=== PATIENT | male | born 1975 | race Caucasian/White ===

== ENCOUNTER 2018-07-05 05:05 | Inpatient (IN) ==
--- NOTE | 2018-06-23 14:29 | Anesthesiology Consultation ---
Date of Service June 23, 2018 Assessment & Plan (1) Encounter for pre-operative examination: Chart Review Chart Review: Acceptable Risk for Surgery and Patient seen in Pre Admission Testing Teaching & Discussion Instructed NPO after midnight before surgery, except medications with 15 cc of water. Medication instructions provided according to the PAT guidelines. History Surgery Operation Date: 07/05/18 07:30 Proposed Procedures p Robotic Laparoscopic Assisted Radical Retropubic Prostatectomy, Possible Open , Possible Lymph Node Dissection - Karosn Davey MD Height/Weight Height: 5 ft 7 in Weight: 70 kg Allergies Allergy/AdvReac Type Severity Reaction Status Date / Time No Known Allergies Allergy Verified 06/22/18 13:54 Medications Home Medications Medication Instructions Recorded Confirmed Last Taken L-Arginine 500 mg PO DAILY 06/22/18 06/22/18 Unknown Super Food/Raw Dietary 1 dose PO UD 06/22/18 06/22/18 Unknown Turmeric 1,500 mg PO DAILY 06/22/18 06/22/18 Unknown ginkgo biloba leaf extract 120 mg PO DAILY 06/22/18 06/22/18 Unknown vitamin B complex 1 tab PO DAILY 06/22/18 06/22/18 Unknown Past Medical History Medical History Cancer PROSTATE CANCER (NEW DX) Migraine HX OF Past Family History Family History Grandmother (Paternal) Family hx of colon cancer Past Surgical History Surgical History H/O eye surgery LASER ON RT (RETINA REPAIR) H/O prostate biopsy ELEVATED PSA LEVELS History of myringotomy BMT History of tooth extraction Past Anesthesia History No Hx of Anesthesia Complications and No Family Hx of Anesthesia Complications History of PONV No Motion Sickness Screening History of Motion Sickness: No Social History Smoking Status: Never smoker tobacco type: smokeless tobacco Do You Dip or Chew Tobacco: Yes (3-4 CANS WEEKLY, ADVISED NONE AM DOS) Hx Alcohol Use: Yes Alcohol type: beer alcohol intake frequency: a few times a month Hx Substance Use: No substance use type: does not use Exercise / Class Metabolic Activity II 4-5 Yardwork/Stairs/Walk up hill (Cuts and splits wood, has a physical job, no limiting CP or SOB) Review of Systems Pt denies any recent chest pain, shortness of breath, palpitations, cough, fever or URI. Physical Exam Vital Signs BP: 134/86 P: 68bpm SPO2: 97% RA T: 98.6 F R: 16 ENMT Mouth: + dentition abnormality (Missing a few molars); no dental restorations, no chipped teeth and no loose teeth Thyromental Distance: < 3.5 Finger Breadths (3) Mallampati Class: I Neck normal visual inspection and + facial hair (short trimmed, pt OK to shave p/t surgery); neck extension not limited Respiratory normal respiratory effort Auscultation: lungs clear to auscultation bilaterally Cardiovascular Rate/Rhythm: regular rate and regular rhythm Heart Sounds: no murmur Vessels: no carotid bruit Testing Electrocardiogram Date: 06/23/18 Findings: + NSR @ (65) Rightward axis. Chest X-Ray Date: 06/23/18 Findings: + NAD Laboratory Results 06/23/18 14:45 06/23/18 14:45 Blood Type O Positive 06/23/18 14:45 Antibody Screen NEGATIVE 06/23/18 14:45
--- NOTE | 2018-06-23 14:36 | PAT Medication Instructions ---
Medication Instructions Date of Service June 23, 2018 Home Medications L-Arginine 500 mg PO DAILY Super Food/Raw Dietary 1 dose PO UD Turmeric 1,500 mg PO DAILY ginkgo biloba leaf extract 120 mg PO DAILY vitamin B complex 1 tab PO DAILY STOP taking 2 weeks before surgery L-Arginine 500 mg PO DAILY Super Food/Raw Dietary 1 dose PO UD Turmeric 1,500 mg PO DAILY ginkgo biloba leaf extract 120 mg PO DAILY DO NOT take the morning of surgery vitamin B complex 1 tab PO DAILY Other Notes If you have any questions please call us at [phone] or [phone] or [phone] or [phone]
--- NOTE | 2018-06-23 15:02 | XRay Report ---
XR chest Pre-admission PA/Lat CLINICAL HISTORY: pat preoperative evaluation COMPARISON STUDY: No previous studies for comparison. FINDINGS: The bones soft tissues and hemidiaphragms are normal. The cardiomediastinal silhouette is n ormal. The lungs are clear. The pulmonary vasculature is normal. IMPRESSION: Negative chest. The above report was generated using voice recognition software. It may contain grammatical, syntax or spelling errors. Electronically signed by: Eric Zayas M.D. 06/23/2018 3:01 PM
[2018-06-23 15:15] LABS: Basophils # (auto) 0.03 K/uL (0-0.2); Basophils % (auto) 0.6 %; Eosinophils # (auto) 0.12 K/uL (0-0.5); Eosinophils % (auto) 2.2 %; Hematocrit (blood only) 44.1 % (42-52); Lymphocytes # (auto) 1.76 K/uL (1.2-3.4); Lymphocytes % (auto) 32.7 %; Mean Corpuscular Hgb Conc 36.3 g/dL (32-36); Mean Corpuscular Volume 85.1 fL (80-100); Mean Platelet Volume 10.9 fL (7.4-10.4); Monocytes # (auto) 0.27 K/uL (0.11-0.59); Neutrophils % (auto) 59.5 %; Platelet Count 222 K/uL (130-400); RDW Coefficient of Variation 12.9 % (11.5-14.5); RDW Standard Deviation 40.2 fL (36.4-46.3); Red Blood Count 5.18 M/uL (4.7-6.1); White Blood Count 5.38 K/uL (4.8-10.8)
[2018-06-23 15:42] LABS: BUN Creatinine Ratio 12.3 (10-20); Calcium 8.9 mg/dl (8.5-10.1); Creatinine Clr Calc Pharmacy 98.9 ml/min; Est GFR (African American) 120.1; Est GFR (Non-African American) 103.6; Potassium 3.6 mmol/L (3.5-5.1)
[2018-07-05] MEDS ORDERED: HEPARIN SOD 5,000 UNIT/0.5 ML VIAL SQ SCH (06:00)
[2018-07-05] MEDS ORDERED: LR 15ML/HR IV SCH (06:00)
[2018-07-05] MEDS ORDERED: CEFAZOLIN 1000MG 1,000 MG/7.5 ML SYR IV SCH (06:00)
[2018-07-05] MEDS ORDERED: CEFAZOLIN 2000MG 2,000 MG/15 ML SYR IV SCH (06:00)
--- NOTE | 2018-07-05 06:50 | History & Physical Bridge Note ---
Date of Service July 05, 2018 History & Physical Bridge Note I have examined the patient, reviewed the History & Physical and in the interval since the performance of the History & Physical I have noted the following changes of clinical significance: no changes noted
[2018-07-05] MEDS ORDERED: MIDAZOLAM HCL 1 MG/ML 2ML VIAL ONE (06:53)
[2018-07-05] MEDS ORDERED: fentaNYL citrate 100 MCG/2 ML VIAL ONE (06:53)
[2018-07-05] MEDS ORDERED: ONDANSETRON INJ 2 MG/ML 2 ML VIAL ONE (06:53)
[2018-07-05] MEDS ORDERED: PROPOFOL IV EMULSION 10 MG/ML 20 ML VIAL IV ONE (06:53)
[2018-07-05] MEDS ORDERED: GLYCOPYRROLATE 0.2 MG/ML VIAL ONE (06:53)
[2018-07-05] MEDS ORDERED: DEXAMETHASONE SOD INJ 4 MG/ML VIAL ONE (06:53)
[2018-07-05] MEDS ORDERED: LIDOCAINE HCL 2% 2 ML VIAL/AMP(20MG/ML) INFIL ONE (06:53)
[2018-07-05] MEDS ORDERED: NEOSTIGMINE METHYLSULFATE 5 MG/5 ML SYR ONE (06:53)
[2018-07-05] MEDS ORDERED: ROCURONIUM BROMIDE 10 MG/ML 5 ML VIAL ONE ×5 (06:53→10:42)
[2018-07-05] MEDS ORDERED: BUPIVACAINE 0.5 % 5 MG/1 ML MPF 30ML VIAL ONE (06:54)
[2018-07-05] MEDS ORDERED: HYDROmorphone INJ 2 MG/ML SYR/VIAL ONE (06:54)
[2018-07-05] MEDS ORDERED: KETAMINE HCL INJ 50 MG/ML 10 ML VIAL ONE (06:54)
[2018-07-05] MEDS ORDERED: BELLADONNA/OPIUM SUPP 60 MG SUPP PR ONE (07:51)
[2018-07-05] MEDS ORDERED: BELLADONNA/OPIUM SUPP 60 MG SUPP PR PRN (08:38)
[2018-07-05] MEDS ORDERED: SURGICEL ABSORB HEMOSTAT 2IN X 14IN TOP ONE (08:38)
[2018-07-05] MEDS ORDERED: LABETALOL HCL IV 5 MG/ML 20ML IV ONE (09:00)
[2018-07-05] MEDS ORDERED: ACETAMINOPHEN 1000 MG/100 ML IV IV ONE (09:09)
[2018-07-05] MEDS ORDERED: KETOROLAC 30 MG/ML VIAL ONE (09:21)
[2018-07-05] MEDS ORDERED: FLOSEAL HEMOSTATIC MATRIX 10ML TOP ONE (09:21)
--- NOTE | 2018-07-05 11:01 | Post Operative Brief Note ---
Immediate Post Op Note v1 Date of Surgery July 05, 2018 Pre & Post Diagnosis Operation Date: 07/05/18 07:30 Pre-Op Diagnosis: Malignant Neoplasm of Prostate Post-Op Diagnosis: Malignant Neoplasm of Prostate Procedure Operation Date: 07/05/18 07:30 Actual Procedures p Robotic Laparoscopic Assisted Radical Retropubic Prostatectomy, Bilateral Pelvic Lymph Node Dissection(Not Applicable) - aKrson Davey MD Surgeon Finn Davey MD Mix House Operator Siena Yusuf; Mary Rodriguez Estimated Blood Loss 150 Findings Consistent with Post-Op Diagnosis Drains Hector Catheter
--- NOTE | 2018-07-05 11:26 | Operative Report ---
Post Operative Report Pre & Post Diagnosis Operation Date: 07/05/18 07:30 Pre-Op Diagnosis: Malignant Neoplasm of Prostate Post-Op Diagnosis: Malignant Neoplasm of Prostate Procedure Operation Date: 07/05/18 07:30 Actual Procedures p Robotic Laparoscopic Assisted Radical Retropubic Prostatectomy, Bilateral Pelvic Lymph Node Dissection(Not Applicable) - Karson Davey MD Surgeon Finn Davey MD Auricular Therapist Siena Yusuf; Mary Rodriguez Estimated Blood Loss 150 Findings Consistent with Post-Op Diagnosis Specimens 1. periprostatic fat 2. L pelvic lymph nodes 3. R pelvic lymph nodes 4. prostate and SVs Description of Procedure The patient was identified in the preoperative holding area, appropriate informed consents were reviewed and completed, and he was transported to the operating suite. Subcutaneous heparin was administered in the pre-operative holding area. Upon arrival in the operating suite, he received appropriate antibiotics and general anesthesia. He was positioned in dorsal lithotomy, a B& O suppository was inserted after digital rectal exam, and he was prepped and draped in standard fashion. A Hector catheter was inserted in the sterile field. A Veress needle was passed per umbilicus with uniform insufflation of the abdomen to 15mmHg. He was placed in steep Trendelenburg position. A periumbilical incision was then made to accommodate a 12mm Visiport with 10mm 0degree laparoscope. Inspection of the abdomen was carried out, and there was no evidence of traumatic entry or injury secondary to the Veress needle. After confirming a clear anterior abdominal wall, ports were subsequently placed in standard robotic prostatectomy fashion without incident. To begin the robotic portion of the case, the left lateral aspect of the sigmoid was mobilized off of the left pelvic side wall to allow the pouch of Jose Luis to be appropriately visualized.I additionally had to mobilize the cecum from the right side of the pelvic side wall. The medial umbilical ligaments were then controlled with bipolar electrocautery just inferior to the umbilicus. Following cauterization, they were divided utilizing monopolar cautery. A peritoneal incision was carried from this location to the medial aspect of the internal inguinal rings bilaterally with care to avoid opening through the ring. This incision was concluded when the vas deferens was reached. Dissection of the bladder and prostate off of the posterior aspect of the pubic arch was completed allowing full visualization of the prostate. The fat overlying the prostate was removed en bloc and passed off the table as a specimen labeled "periprostatic fat". The endopelvic fascia was cleared during this portion of the procedure, and subsequently opened - first on the right and then the left. The incision through the endopelvic fascia began near the prostate-bladder junction and was carried to the apex with extreme care to preserve all lateral levator musculature as well as the periurethral musculature and sphincter complex. The puboprostatic ligaments were thinned slightly bilaterally before placing a 0-Vicryl figure of 8 stitch around the DVC. The lymph node dissection was then conducted. External iliac vessels were identified on the pelvic side wall. The packet of fat and lymphatic tissue that resides just under the iliac vein was elevated and off of the vein with a split and roll technique. The packet was dissected laterally to the circumflex vein and distally to the obturator nerve which was preserved. The proximal aspect of the packet was carried towards the bifurcation of the iliac vessels. A combination of monopolar and bipolar cautery were used to assist with control. Clips were placed at the proximal and distal aspects of the packet prior to transection. After completing the dissection on both sides, the packets were collected and passed off of the table as specimens labeled "pelvic lymph nodes". My attention then returned to the prostate, with identification of the bladder neck aided by gentle traction on the Hector catheter and lateral to medial pressure at the presumed level of the bladder neck with the robotic instruments. An anterior cystotomy was made, the Hector balloon deflated and the catheter guided through the incision to allow anterior retraction. I attempted to preserve maximal bladder neck musculature as I circumferentially dissected around the bladder neck. After incision through the posterior aspect of the mucosa, the dissection was carried through detrusor muscle until the bilateral ampullae of the vasa were identified. I dissected both vasa for a length of around 4cm before transecting them. I then worked around the left SV followed by the right SV with very judicious use of bipolar electrocautery. Using the SVs to retract the prostate anteriorly, I split Denovilliers fascia and dissected posteriorly to the apex. An incision in the lateral prostatic fascia was then made bilaterally to facilitate control of the vascular pedicles. The pedicles were each controlled with a series of Weck clips. The neurovascular bundles were identified with an aggressive nerve sparing on the left and a more guarded approach on the right. The apical attachments of the prostate were remaining at that stage. The DVC was divided with bipolar electrocautery. Shanti-prostatic tissue incised with sharp dissection and monopolar cautery. Maximal urethral length was preserved before dividing the urethra sharply. The prostate was entirely freed at that point, and collected in an EndoCatch bag before being moved out of the field of vision. Hemostasis was confirmed and anastomosis of the bladder and urethra was completed utilizing a double armed V- Lock stitch. A new Hector catheter was inserted and the anastomosis tested with irrigation. There was no evidence of leak. FloSeal coagulant was placed around the anastomosis. The robot was undocked, the specimen extracted through expansion of the shanti- umbilical camera port. The fascia was closed with a series of 0-PDS figure of 8 stitches. The right sales support assistant port was closed in two layers - with a figure of 8 0-Vicryl to reapproximate the fascia followed by 4-0 Monocryl to close the skin. Monocryl was used to close all other skin incisions. All wounds were dressed with Dermabond. The case was concluded and the patient taken to the PACU in stable condition. I attest to the content of the Intraoperative Record and any orders documented therein. Any exceptions are noted below.
[2018-07-05 11:45] LABS: Basophils # (auto) 0.03 K/uL (0-0.2); Basophils % (auto) 0.2 %; Eosinophils # (auto) 0.01 K/uL (0-0.5); Eosinophils % (auto) 0.1 %; Hemoglobin 15.5 g/dL (14.0-18.0); Immature Granulocytes # (auto) 0.06 K/uL (0.00-0.02); Immature Granulocytes % (auto) 0.4 %; Lymphocytes % (auto) 7.2 %; Mean Corpuscular Volume 86.8 fL (80-100); Mean Platelet Volume 10.8 fL (7.4-10.4); Monocytes # (auto) 0.16 K/uL (0.11-0.59); Monocytes % (auto) 1.1 %; Neutrophils # (auto) 12.68 K/uL (1.4-6.5); Platelet Count 223 K/uL (130-400); RDW Coefficient of Variation 13.5 % (11.5-14.5); RDW Standard Deviation 42.6 fL (36.4-46.3); Red Blood Count 5.07 M/uL (4.7-6.1); White Blood Count 13.94 K/uL (4.8-10.8)
[2018-07-05 11:46] LABS: Mean Corpuscular Hgb Conc 35.2 g/dL (32-36)
--- NOTE | 2018-07-05 11:51 | Anesthesiology Progress Note ---
Date of Service July 05, 2018 Anesthesia Post Procedure Vital Signs Vital Signs: Temp Pulse Pulse Resp BP BP Pulse Ox 07/05/18 11:40 80 17 159/90 H 100 07/05/18 11:35 86 18 159/95 H 100 07/05/18 11:31 85 18 159/95 H 100 07/05/18 11:30 81 18 100 07/05/18 11:25 85 17 155/95 H 100 07/05/18 11:20 74 13 156/96 H 100 07/05/18 11:15 85 18 150/86 H 100 07/05/18 11:11 36.6 C 75 79 19 135/77 135/77 100 07/05/18 05:30 36.7 C 69 20 137/85 99 Notes Mental Status: alert / awake / arousable and participated in evaluation Nausea / Vomiting: adequately controlled Pain: adequately controlled Airway Patency, RR, SpO2: stable & adequate BP & HR: stable & adequate Hydration State: stable & adequate Anesthetic Complications: no major complications apparent and Pt Satisfied with anesthetic care
[2018-07-05] MEDS ORDERED: ONDANSETRON INJ 2 MG/ML 2 ML VIAL IV PRN ×2 (11:52→12:34)
[2018-07-05] MEDS ORDERED: fentaNYL citrate 100 MCG/2 ML VIAL IV PRN (11:52)
[2018-07-05] MEDS ORDERED: HYDROmorphone INJ 1 MG/ML SYRINGE IV PRN (11:52)
[2018-07-05] MEDS ORDERED: ePHEDrine sulfate 50 MG/ML AMP IV PRN (11:52)
[2018-07-05] MEDS ORDERED: ATROPINE SULFATE 0.1 MG/ML 10ML SYR IV PRN (11:52)
[2018-07-05 12:03] LABS: BUN Creatinine Ratio 10.4 (10-20); Calcium 8.1 mg/dl (8.5-10.1); Creatinine Clr Calc Pharmacy 78.2 ml/min; Est GFR (African American) 90.5; Est GFR (Non-African American) 78.1; Potassium 3.9 mmol/L (3.5-5.1)
[2018-07-05] MEDS ORDERED: ACETAMINOPHEN 1,000 MG/100 ML VIAL IV PRN (12:34)
[2018-07-05] MEDS ORDERED: MoRPHine SULFATE 4 MG/ML 1 ML CARP\\VIAL IV PRN (12:34)
[2018-07-05] MEDS: LACTATED RINGER'S 1,000 ML IV SCH ×2 (12:50→21:56)
[2018-07-05] MEDS: FAMOTIDINE 20 MG in SYRINGE 3 ML IV SCH (13:09)
[2018-07-05] MEDS: OXYCODONE HCL IR 5 MG TAB (IMMEDIATE RELEASE) PO PRN ×4 (13:13→21:09)
[2018-07-05 13:25] LABS: INR 1.1 (0.9-1.1); Partial Thromboplastin Ratio 0.9; Partial Thromboplastin Time 23.2 Seconds (21.0-31.0); Prothrombin Time 11.5 Seconds (9.0-12.0)
[2018-07-05] MEDS: CEFAZOLIN 2000MG 2,000 MG/15 ML SYR IV SCH ×2 (14:12→21:58)
[2018-07-05] MEDS: DOCUSATE SODIUM 100 MG CAP PO SCH (21:09)
[2018-07-05] MEDS: HEPARIN SOD 5,000 UNIT/0.5 ML VIAL SQ SCH (21:10)
[2018-07-06] MEDS: FAMOTIDINE 20 MG in SYRINGE 3 ML IV SCH ×2 (00:25→12:32)
[2018-07-06] MEDS: CEFAZOLIN 2000MG 2,000 MG/15 ML SYR IV SCH (06:13)
--- NOTE | 2018-07-06 07:40 | Urology Progress Note ---
Date of Service July 06, 2018 Assessment & Plan (1) Prostate cancer: POD #1 s/p RALP - doing very well - advance diet - d/c planning Subjective doing very well overall - minimal pain - ambulatory - hungry - clear urine Physical Exam 2 Vital Signs (Past 24 Hours): Last Vital Signs Temp 36.8 C 07/06/18 07:05 Pulse 77 07/06/18 07:05 Resp 17 07/06/18 07:05 BP 117/50 L 07/06/18 07:05 Pulse Ox 98 07/06/18 07:05 Physical Exam: NAD AAOx3 no resp distress RRR abd soft - incisions appropriate - urine clear
[2018-07-06 07:58] LABS: Basophils # (auto) 0.02 K/uL (0-0.2); Basophils % (auto) 0.3 %; Eosinophils # (auto) 0.05 K/uL (0-0.5); Eosinophils % (auto) 0.8 %; Hematocrit (blood only) 30.3 % (42-52); Hemoglobin 10.7 g/dL (14.0-18.0); Immature Granulocytes # (auto) 0.02 K/uL (0.00-0.02); Immature Granulocytes % (auto) 0.3 %; Lymphocytes # (auto) 1.67 K/uL (1.2-3.4); Lymphocytes % (auto) 25.3 %; Mean Corpuscular Hgb Conc 35.3 g/dL (32-36); Mean Corpuscular Volume 87.3 fL (80-100); Mean Platelet Volume 9.8 fL (7.4-10.4); Monocytes # (auto) 0.84 K/uL (0.11-0.59); Monocytes % (auto) 12.7 %; Neutrophils % (auto) 60.6 %; Platelet Count 194 K/uL (130-400); RDW Coefficient of Variation 13.5 % (11.5-14.5); RDW Standard Deviation 43.3 fL (36.4-46.3); Red Blood Count 3.47 M/uL (4.7-6.1)
[2018-07-06] MEDS: LACTATED RINGER'S 1,000 ML IV SCH (08:00)
[2018-07-06] MEDS: DOCUSATE SODIUM 100 MG CAP PO SCH ×2 (08:01→21:06)
[2018-07-06 08:22] LABS: BUN Creatinine Ratio 11.7 (10-20); Calcium 7.9 mg/dl (8.5-10.1); Creatinine Clr Calc Pharmacy 87.3 ml/min; Est GFR (African American) 103.4; Est GFR (Non-African American) 89.2; Potassium 3.9 mmol/L (3.5-5.1)
[2018-07-06] MEDS: HEPARIN SOD 5,000 UNIT/0.5 ML VIAL SQ SCH ×2 (08:49→21:05)
--- NOTE | 2018-07-06 10:29 | Anesthesiology Progress Note ---
Date of Service July 06, 2018 Anesthesia Post Procedure Vital Signs Vital Signs: Temp Pulse Pulse Pulse Resp BP BP 07/06/18 07:05 36.8 C 77 17 117/50 L 07/06/18 04:20 36.8 C 85 16 114/67 07/05/18 23:05 37.2 C 81 16 108/68 07/05/18 19:25 07/05/18 19:05 37 C 118 H 16 116/79 07/05/18 14:29 37.0 C 92 H 16 120/80 07/05/18 13:28 92 H 18 108/75 07/05/18 12:58 36.8 C 92 H 18 97/66 L 07/05/18 12:30 37.5 C 96 H 18 144/88 H 07/05/18 12:20 83 0 L 152/87 H 07/05/18 12:15 82 7 L 158/90 H 07/05/18 12:10 81 6 L 151/90 H 07/05/18 12:05 85 11 L 145/88 H 07/05/18 12:02 37.0 C 85 16 155/87 H 07/05/18 12:00 93 H 8 L 07/05/18 11:55 93 H 14 153/90 H 07/05/18 11:52 93 H 16 07/05/18 11:50 92 H 13 164/93 H 07/05/18 11:49 89 14 155/94 H 07/05/18 11:45 87 14 149/94 H 07/05/18 11:40 80 17 159/90 H 07/05/18 11:35 86 18 159/95 H 07/05/18 11:31 85 18 159/95 H 07/05/18 11:30 81 18 07/05/18 11:25 85 17 155/95 H 07/05/18 11:20 74 13 156/96 H 07/05/18 11:15 85 18 150/86 H 07/05/18 11:11 36.6 C 75 79 19 135/77 135/77 Pulse Ox 07/06/18 07:05 98 07/06/18 04:20 99 07/05/18 23:05 98 07/05/18 19:25 98 07/05/18 19:05 98 07/05/18 14:29 97 07/05/18 13:28 97 07/05/18 12:58 97 07/05/18 12:30 99 07/05/18 12:20 100 07/05/18 12:15 100 07/05/18 12:10 100 07/05/18 12:05 100 07/05/18 12:02 100 07/05/18 12:00 100 07/05/18 11:55 100 07/05/18 11:52 100 07/05/18 11:50 100 07/05/18 11:49 100 07/05/18 11:45 100 07/05/18 11:40 100 07/05/18 11:35 100 07/05/18 11:31 100 07/05/18 11:30 100 07/05/18 11:25 100 07/05/18 11:20 100 07/05/18 11:15 100 07/05/18 11:11 100 Pain Intensity Abdomen: Pain Intensity: 4 Notes Mental Status: alert / awake / arousable Patient Amnestic to Procedure: Yes Nausea / Vomiting: adequately controlled Pain: adequately controlled Airway Patency, RR, SpO2: stable & adequate BP & HR: stable & adequate Hydration State: stable & adequate Anesthetic Complications: no major complications apparent and Pt Satisfied with anesthetic care
[2018-07-06] MEDS: OXYCODONE HCL IR 5 MG TAB (IMMEDIATE RELEASE) PO PRN ×3 (13:40→21:11)
[2018-07-06] MEDS: FAMOTIDINE 20 MG TAB PO SCH (21:07)
[2018-07-07] MEDS: OXYCODONE HCL IR 5 MG TAB (IMMEDIATE RELEASE) PO PRN ×2 (02:36→08:03)
--- NOTE | 2018-07-07 07:36 | Urology Progress Note ---
Date of Service July 07, 2018 Assessment & Plan (1) Prostate cancer: POD #2 s/p RALP - progressing as expected. more discomfort today but still controlled. - Encourage ambulation and use of IS. - d/c planning for today. Sending home with pain control, colace and 3d abx course timed around catheter removal next week. Discussed with patient. All questions answered. D/c instructions discussed. He feels ready to head home. ATTENDING NOTE: - borderline tachy, H and H stable - otherwise seems to be doing well - tentative plan for d/c later today presuming continued progression Subjective 43yo M POD #2 s/p prostatectomy, bilat lymph node dissection doing very well overall - some pelvic discomfort, gas pains. Controlled with PO options. - had a BM yesterday. - continues to ambulate in halls. - tolerated regular diet yesterday, denies n/v. - mendoza catheter draining clear yellow. Physical Exam 2 Vital Signs (Past 24 Hours): Last Vital Signs Temp 37.1 C 07/07/18 07:22 Pulse 111 H 07/07/18 07:22 Resp 17 07/07/18 07:22 BP 133/77 07/07/18 07:22 Pulse Ox 96 07/07/18 07:22 Physical Exam: A&Ox3 RRR abd soft, slightly tender at incision sites. incisions well approximated, no ecchymosis, bleeding or drainage. psych: good judgement, good eyecontact. Results & Data Laboratory Results Laboratory Results - last 48 hr 07/05/18 07/05/18 07/05/18 11:27 11:27 12:55 WBC 13.94 H RBC 5.07 Hgb 15.5 Hct 44.0 MCV 86.8 MCH 30.6 MCHC 35.2 RDW Std Deviation 42.6 RDW Coeff of [place] 13.5 Plt Count 223 MPV 10.8 H Immature Gran % (Auto) 0.4 Neut % (Auto) 91.0 Lymph % (Auto) 7.2 [place] % (Auto) 1.1 Eos % (Auto) 0.1 Baso % (Auto) 0.2 Immature Gran # (Auto) 0.06 H Neut # (Auto) 12.68 H Lymph # (Auto) 1.00 L [place] # (Auto) 0.16 Eos # (Auto) 0.01 Baso # (Auto) 0.03 PT 11.5 INR 1.1 APTT 23.2 PTT Ratio 0.9 Sodium 139 Potassium 3.9 Chloride 105 Carbon Dioxide 27 Anion Gap 7.0 BUN 12 Creatinine 1.15 Est Cr Clr Drug Dosing 78.2 Est GFR ( Amer) 90.5 Est GFR (Non-Af Amer) 78.1 BUN/Creatinine Ratio 10.4 Glucose 127 H Calcium 8.1 L 07/06/18 07/06/18 07:35 07:35 WBC 6.60 RBC 3.47 L Hgb 10.7 L D Hct 30.3 L MCV 87.3 MCH 30.8 MCHC 35.3 RDW Std Deviation 43.3 RDW Coeff of [place] 13.5 Plt Count 194 MPV 9.8 Immature Gran % (Auto) 0.3 Neut % (Auto) 60.6 Lymph % (Auto) 25.3 [place] % (Auto) 12.7 Eos % (Auto) 0.8 Baso % (Auto) 0.3 Immature Gran # (Auto) 0.02 Neut # (Auto) 4.00 Lymph # (Auto) 1.67 [place] # (Auto) 0.84 H Eos # (Auto) 0.05 Baso # (Auto) 0.02 PT INR APTT PTT Ratio Sodium 136 Potassium 3.9 Chloride 102 Carbon Dioxide 31 Anion Gap 3.0 BUN 12 Creatinine 1.03 Est Cr Clr Drug Dosing 87.3 Est GFR ( Amer) 103.4 Est GFR (Non-Af Amer) 89.2 BUN/Creatinine Ratio 11.7 Glucose 103 H Calcium 7.9 L
[2018-07-07 07:54] LABS: Basophils # (auto) 0.01 K/uL (0-0.2); Basophils % (auto) 0.1 %; Hematocrit (blood only) 30.2 % (42-52); Hemoglobin 10.5 g/dL (14.0-18.0); Immature Granulocytes # (auto) 0.02 K/uL (0.00-0.02); Immature Granulocytes % (auto) 0.2 %; Lymphocytes # (auto) 0.46 K/uL (1.2-3.4); Lymphocytes % (auto) 4.6 %; Mean Corpuscular Hgb Conc 34.8 g/dL (32-36); Mean Corpuscular Volume 87.5 fL (80-100); Mean Platelet Volume 10.4 fL (7.4-10.4); Monocytes # (auto) 0.91 K/uL (0.11-0.59); Monocytes % (auto) 9.2 %; Neutrophils % (auto) 85.9 %; Platelet Count 185 K/uL (130-400); RDW Coefficient of Variation 13.4 % (11.5-14.5); RDW Standard Deviation 43.1 fL (36.4-46.3); Red Blood Count 3.45 M/uL (4.7-6.1)
[2018-07-07] MEDS: HEPARIN SOD 5,000 UNIT/0.5 ML VIAL SQ SCH (08:57)
[2018-07-07] MEDS: FAMOTIDINE 20 MG TAB PO SCH (08:57)
[2018-07-07] MEDS: DOCUSATE SODIUM 100 MG CAP PO SCH (08:57)
--- NOTE | 2018-07-08 08:10 | Discharge Summary ---
Date of Service July 08, 2018 Admission HPI Per Admitting Provider Significantly elevated PSA for age and prostate cancer Presenting for robotic prostatectomy Principal Diagnosis Prostate cancer Discharge Data Allergies Allergy/AdvReac Type Severity Reaction Status Date / Time No Known Allergies Allergy Verified 06/22/18 13:54 Procedures Performed Operation Date: 07/05/18 07:30 Actual Procedures p Robotic Laparoscopic Assisted Radical Retropubic Prostatectomy, Bilateral Pelvic Lymph Node Dissection(Not Applicable) - Karson Davey MD Hospital Course (1) Prostate cancer: Patient was admitted for robotic prostatectomy and underwent the surgery without event. His postoperative recovery was on pace, he was prepared for discharge home on postoperative day 1 however weather became a major inhibitory factor making it unsafe to travel and he ended up staying overnight on postoperative day 1 to ultimately be discharged home on the morning of postoperative day #2. His urine had cleared appropriately, he was ambulatory, he was tolerating a diet and his pain was well controlled. He was in stable condition. Pathology was ultimately returned on postoperative day 3�[place] 7 prostate cancer with notable extraprostatic extension but negative margins. He had no seminal vesicle invasion or lymph node disease. Total Time Total Time Spent Total Time Spent (In Minutes): 30 Discharge Plan Discharge Items Patient Disposition: Home - Self-Care Reason For Visit: Malignant Neoplasm of Prostate Discharge Diagnosis: Malignant Neoplasm of Prostate Discharge Goals: Learn about illness and Prevent disease Activity: As commented below Activity Comment: walking and stairs in your home are okay Lifting: No more than 10 pounds Bathing: Keep incision dry Bathing Comment: Okay to shower tomorrow. Do not pick at surgical glue. No tub baths/soaking Sexual Activity: Wait until after follow-up appointment Exercise/Sports: Rest today and Wait until after follow-up appointment Driving/Machine Use: Resume 1 day after discharge Driving/Machine Use Comment: please do not drive while taking perscription pain medication. Non-emergency contact: Urologist Call non-emergency contact if: you have any medication questions, your pain is unusual for you, your pain is concerning for you, your temperature is above 101 , your wound has increased redness, your wound has increased drainage and your wound pain has increased Follow-up/Referrals: Danny Pan [Primary Care Provider] - Diet: Regular Addtl Provider Instructions: Please feel free to contact our office with any questions, concerns or needs to change your appointment time at [phone]. Please do not drink alcohol or drive while taking prescription pain medication. - We recommend you take a stool softener (colace) twice a day for the first two weeks to prevent straining. - Okay to take as needed after that timeframe. We sent a prescription to your pharmacy for an antibiotic (Cipro) - Please start this antibiotic the day BEFORE your scheduled voiding trial, and continue through the day after (3 days total). - Nursing voiding trial appointment is scheduled for 07/12 at 1:40PM. Prescriptions: New ciprofloxacin HCl [Cipro] 500 mg tablet 500 mg PO Q12H Qty: 6 RF: 0 docusate sodium [Colace] 100 mg capsule 100 mg PO BID Qty: 60 RF: 0 oxycodone 5 mg tablet 5 mg PO TID PRN (Reason: pain) Qty: 20 RF: 0 Continue vitamin B complex Tablet 1 tab PO DAILY RF: 0 ginkgo biloba leaf extract 120 mg Capsule 120 mg PO DAILY RF: 0 arginine oxoglurate [L-Arginine(alpha-ketoglutarat)] 350 mg Tablet Extended Release 500 mg PO DAILY RF: 0 turmeric 400 mg Capsule 1,500 mg PO DAILY RF: 0 Super Food/Raw Dietary 1 dose PO UD RF: 0 Stand-Alone Forms: [email or web address], [facility] [place]/Other Patient Handouts: Catheter Bag Urinary Empty Clean, Prostatectomy Radical Dc, Catheter Indwelling Urinary Dc, Leg Bag Care Dc Discharge Orders: Discharge Order (Routine); Ordered 07/07/18 Ordered By: Siena Yusuf Admission Data Admit Date/Time: 07/05/18 10:57 Attending Provider: Karson Davey Admit Provider: Karson Davey Primary Care Provider: Danny Pan Service: Surgical Services Other Interventions: Discharge Summary Assessment (RN) Last Done: 07/07/18 10:47 DC Date/Time DO NOT enter until pt leaves facility: 07/07/18 11:12
== END 2018-07-07 11:12 | disposition home or self-care (01) | DRG 708 ==
LOC: ASU 05:05 → 3W 10:57